=== PATIENT | male | born 1990 | race Caucasian/White ===

== ENCOUNTER 2016-03-04 15:33 | Emergency (ER) | payer BC, OTHER ==
[~2016-03-04] VITALS: Ht 177.8 cm; Wt 86.2 kg
[2016-03-04] MEDS ORDERED: HYDROmorphone HCL 2 MG/ML VL IV ONE ×2 (16:00→16:45)
[2016-03-04] MEDS ORDERED: PROMETHAZINE HCL 25 MG/ML 1ML IV ONE (16:00)
[2016-03-04] MEDS ORDERED: ONDANSETRON HCL 4 MG/2 ML VIAL IV ONE (16:45)
[2016-03-04 17:05] VITALS: BP 145/66
== END 2016-03-04 18:02 | disposition home or self-care (01) ==
LOC: EDBD 15:33 → ER 15:39
DX: S43.005A Unspecified dislocation of left shoulder joint, initial encounter (principal); S43.402A Unspecified sprain of left shoulder joint, initial encounter; V00.311A Fall from snowboard, initial encounter; Y93.89 Activity, other specified; Y99.8 Other external cause status; Y92.89 Other specified places as the place of occurrence of the external cause
CPT/HCPCS: 23650; 73020; 73030; 96374; 96375; 96376; 99284; J1170; J2405; J2550